=== PATIENT | male | born 1980 | race American Indian/Alaskan Native ===

== ENCOUNTER 2016-06-21 10:07 | Emergency (ER) | payer SELFPAY ==
[2016-06-21 10:20] VITALS: BP 123/76
--- NOTE | 2016-06-21 10:48 | Emergency Department Report ---
Chief Complaint: Chest Pain Stated Complaint: CHEST PAIN Time Seen by Provider: 06/21/16 10:39 - HPI History of Present Illness: 35-year-old male comes in with complaint of chest pain and pain in his upper abdominal area after smoking marijuana this morning. Patient admits to nausea and gas. Patient denies any vomiting or diarrhea reports that he feels weak never had this feeling before. - Exam Vital Signs: Vital Signs 06/21/16 10:14 Temperature 97.7 F Pulse Rate 74 Respiratory 16 Rate Blood Pressure 123/76 O2 Sat by Pulse 100 Oximetry Physical Exam: Patient is alert and oriented. He is in obvious pain. Cardiovascular S1-S2 regular rate and rhythm respiratory clear to auscultation bilaterally abdomen soft tenderness to the right upper quadrant there is noted a midline scar from her previous surgery. Extremities no edema appreciated MSE screening note: Focused history and physical exam performed. Due to findings the following was ordered: She is evaluated by [facility] provider. We will order a chest pain protocol as well as lipase amylase and a UDS. ED Disposition for MSE Condition: Stable
[2016-06-21 11:06] LABS: Basophils % (Auto) 0.7 % (0.0-1.8); Eosinophils % (Auto) 1.1 % (0.0-4.3); Hematocrit 45.1 % (35.5-45.6); Hemoglobin 15.1 gm/dl (11.8-15.2); Mean Corpuscular HGB Conc 33 % (32-34); Mean Corpuscular Hemoglobin 31 pg (28-32); Mean Corpuscular Volume 94 fl (84-94); Platelet Count 196 K/mm3 (140-440); Red Blood Count 4.82 M/mm3 (3.65-5.03); Red Cell Distribution Width 13.4 % (13.2-15.2); White Blood Count 4.8 K/mm3 (4.5-11.0)
[2016-06-21 11:24] LABS: Alanine Aminotransferase 14 units/L (7-56); Albumin 4.1 g/dL (3.9-5); Albumin/Globulin Ratio 1.2 %; Alkaline Phosphatase 49 units/L (35-129); Amylase 124 units/L (27-131); Anion Gap 17 mmol/L; BUN/Creatinine Ratio 17.27; Bilirubin,Total 0.7 mg/dL (0.1-1.2); Blood Urea Nitrogen 19 mg/dL (9-20); Calcium 8.9 mg/dL (8.4-10.2); Carbon Dioxide 28 mmol/L (22-30); Chloride 100.5 mmol/L (98-107); Creatine Kinase 194 units/L (55-170); Glucose 122 mg/dL (75-100); Lipase 20 units/L (13-60); Potassium 4.2 mmol/L (3.6-5.0); Sodium 141 mmol/L (137-145); Total Protein 7.4 g/dL (6.3-8.2)
[2016-06-21 11:25] LABS: Bilirubin,Direct < 0.2 mg/dL (0-0.2)
--- NOTE | 2016-06-25 13:41 | ED Elopement Review ---
ED Pt Elopement review - Results review Lab results: Laboratory Tests 06/21/16 06/21/16 06/21/16 10:51 10:51 10:51 WBC 4.8 RBC 4.82 Hgb 15.1 Hct 45.1 MCV 94 MCH 31 MCHC 33 RDW 13.4 Plt Count 196 Lymph % (Auto) 31.9 [place] % (Auto) 10.4 H Eos % (Auto) 1.1 Baso % (Auto) 0.7 Lymph # 1.5 [place] # 0.5 Eos # 0.1 Baso # 0.0 Seg Neutrophils % 55.9 Seg Neutrophils # 2.7 D-Dimer 280.91 H Sodium 141 Potassium 4.2 Chloride 100.5 Carbon Dioxide 28 Anion Gap 17 BUN 19 Creatinine 1.1 Estimated GFR > 60 BUN/Creatinine Ratio 17.27 Glucose 122 H Calcium 8.9 Total Bilirubin 0.7 Direct Bilirubin < 0.2 AST 19 ALT 14 Alkaline Phosphatase 49 Total Creatine Kinase 194 H CK-MB (CK-2) 3.0 CK-MB (CK-2) Rel Index 1.5 Troponin T < 0.010 Total Protein 7.4 Albumin 4.1 Albumin/Globulin Ratio 1.2 Amylase 124 Lipase 20 - Call Back decision Pt Call Back Decision: No action required
== END 2016-06-21 21:57 | disposition left against medical advice (07) ==
LOC: ED 10:07
DX: R07.9 Chest pain, unspecified (principal); R10.10 Upper abdominal pain, unspecified; R11.0 Nausea; Z53.21 Procedure and treatment not carried out due to patient leaving prior to being seen by health care provider
CPT/HCPCS: 36415; 80048; 80074; 82150; 82550; 82553; 83690; 84484; 85025; 85379; 93005; 93010